=== PATIENT | male | born 1960 | race Caucasian/White ===

== ENCOUNTER → 2016-06-28 | Day surgery (SDC) | payer OTHER | END | disposition home or self-care (01) | LOC: FAS 09:38 | DX: K64.8 Other hemorrhoids (principal); E78.5 Hyperlipidemia, unspecified; K63.5 Polyp of colon; K21.9 Gastro-esophageal reflux disease without esophagitis; Z87.891 Personal history of nicotine dependence | CPT/HCPCS: J1100; J2704 ==

== ENCOUNTER → 2021-06-06 | Day surgery (SDC) | payer OTHER ==
[~2021-06-06] VITALS: Ht 180.3 cm; Wt 77.1 kg
[~2021-06-06] MED LIST: ACETAMINOPHEN500 M1 PO; CELEXA20 MG PO; FLOMAX0.4 MG PO; PROTONIX20 MG PO
== END | disposition home or self-care (01) ==
LOC: FAS 09:56
DX: Z12.11 Encounter for screening for malignant neoplasm of colon (principal); D12.5 Benign neoplasm of sigmoid colon; K63.5 Polyp of colon; G47.30 Sleep apnea, unspecified; F17.210 Nicotine dependence, cigarettes, uncomplicated; Z79.899 Other long term (current) drug therapy
CPT/HCPCS: J2250; J2704; J7120